=== PATIENT | male | born 1950 | race Caucasian/White ===

== ENCOUNTER 2018-03-07 21:51 | Emergency (ER) | payer MEDICARE ==
--- OUTSIDE RECORDS SUMMARY | 2018-03-07 22:09 | XMS REPORT ---
:1950 External Reference #:[id number] [facility] Address [address] [place] [address] Phone [phone] Care Team Providers Name Role Phone Richard Gasca MD Care Team Information Mission Support Specialist Unavailable Richard Gasca MD Primary Care Physician Unavailable Payers Type Date Identification Numbers Payment Provider Subscriber Commercial Effective: Policy Number: BS Facets Minh Russo 2011 [id number] Expires: 2018 PayID: [id number] [address] [address] [place] [address] Medigap Part B Policy Number: [id number] Medicare Minh Russo PayID: [id number] [address] [place] [address] Health Maintenance Policy Number: Medicare Blue Ppo Minh Russo [facility] [place] [place] [id number] PayID: [id number] [address] [address] [place] [address] Problems Date Description Provider Status Onset: 10/21/2010 Mixed hyperlipidemia Teresa Pierce M.D.,FACP Onset: 10/21/2010 Idiopathic peripheral neuropathy Teresa Pierce M.D.,FACP Onset: 09/23/2014 Multiple nodules of lung Teresa Pierce M.D.,MARILU Note: two Onset: 09/23/2014 Psoriasis Richard Gasca M.D.,FACP Active Family History Date Family Member(s) Problem(s) Comments Father Alzheimers Document: 12/06/07 - Prog Note - Belkis Father due to Cancer () - unknown primary Onset: (age 82 Mother Cancer, Colon Years) Mother due to Cancer, () Colon Mother Stroke Siblings 2 First Brother Nephrotic Syndrome Document: 12/06/07 - Prog Note - Belkis First Brother Diabetes, Insulin Dependent First Brother Aortic Aneurysm Second Brother Epilepsy Second Brother Frequent falls Social History Type Date Description Comments Marital Status Significant Other Lives With Alone Occupation Teacher ESL at [employer] Cigarette Use Former Cigarette Smoker Cigarette Use Quit 18 Years Ago ETOH Use 08/17/2017 Rarely consumes alcohol Recreational Drug Use Denies Drug Use Smoking Patient is a former smoker quit 1989 Currently Active Patient is currently not sexually active General Hx Text no children Allergies, Adverse Reactions, Alerts Date Description Reaction Status Severity Comments 12/05/2007 Penicillin active Hives/hallucinations 12/05/2007 Zocor active myalgias 12/05/2007 Lipitor active myalgias 06/16/2013 Bactrim Anaphylaxis active anaphylaxis 08/17/2017 Sulfa Antibiotics active Moderate to Severe Medications Medication Date Status Form Strength Qnty SIG Indications Ordering Provider Crestor 12/16/ Active Tablets 5mg 90tabs take one E78.2 Richard 2016 tablet by Vlad Gasca, mouth every M.D.,FACP evening Aspirin 10/19/ Active Tablets 325mg 1 po qd E78.2 Richard 2011 Vlad Gasca M.D.,FACP Clobetasol / Active Ointment 0.05% Unknown Propionate 0000 Claritin / Active Capsules 10mg 1 by mouth Unknown 0000 every day prn (seasonal) Azithromycin 06/03/ Hx Tablets 500mg 5tabs 1 po qd for J02.9 Richard 2015 - 5 days Vlad Gasca, 06/08/ MAspen,FACP 2015 Clindamycin HCL 08/18/ Hx Capsules 300mg 20caps take 1 po Richard 2013 - qid x 5 Vlad Gasca, 06/16/ days M.DBeba,FACP 2013 Clarithromycin 05/24/ Hx Tablets 500mg 28tabs 1 po bid 786.2 Richard 2010 - for 14 days Vlad Gasca, 06/14/ M.DBeba,FACP 2010 Aspirin 08/23/ Hx Tablets 325mg 1 po qd Richard 2009 Abiola aGsca, 10/19/ MAspen,FACP 2011 Tobramycin 05/02/ Hx Solution 0.3% 1Bottl 2 drops in 372.30 Richard Opthalmic 2008 - e affected Vlad Gasca, Solution 10/21/ eye q 4 M.D.,FACP 2010 hour Singulair 12/05/ Hx Tablets 10mg 30tabs 1 po qd 477.8 Richard 2008 - Vlad Gasca, 08/23/ M.D.,FACP 2009 Patanol 12/05/ Hx Solution 0.1% 1Bottl 1 drop in 372.30 Richard 2008 - e each eye Vlad Gasca, 08/23/ bid M.D.,FACP 2009 Asa / Hx 81mg 90unit 1 PO qd Unknown 0000 - s 2007 Protopic /00/ Hx qd Unknown 0000 - 2007 Dovonex / Hx Cream 0.005% Apply qd To Unknown 0000 - Scalp 2010 Cortaid / Hx Cream 0.5% apply daily Unknown 0000 - 2010 Singulair / Hx Tablets 10mg 90tabs 1 PO qd Unknown 0000 - 2009 Zyrtec Allergy / Hx Tablets 10mg Unknown 0000 - 2009 Patanol / Hx Solution 0.1% 1units 1 GTT Both Unknown 0000 - Eyes qd prn 10/21/ Allergies 2010 Niaspan / Hx TBCR 500mg 60unit Take 2 Richard 0000 - s Tablets Vlad Gasca, 10/19/ Orally AT M.D.,FACP 2011 Bedtime Cholestyramine / Hx Packet 4gm 60unit Dissolve E78.2 Richard 0000 - s One Packet Vlad Gasca, 12/16/ In Water M.D.,FACP 2015 And Drink Two Times A Day as Directed Immunizations CPT Code Status Date Vaccine Lot # [id number] Given 08/17/2017 Pneumococcal Conjugate Vaccine 13 Valent For [id number] Intramuscular Use 27972 Given 04/18/2017 Influenza Virus Vaccine, Quadrivalent, Split, Preservative Free [id number] Given 05/24/2016 Fluzone Vaccine 26144 Given 05/24/2016 Influenza Virus Vaccine, Quadrivalent, Split, Preservative Free 55733 Given 12/17/2015 Tdap - Tetanus/Diptheria/Acellular Pertussis [id number] 84796 Given 06/02/2015 Influenza Virus Vaccine, Quadrivalent, Split, Preservative Free 02893 Given 05/20/2014 Flu Vaccine Split Virus Preservative Free For Indiv 3Yr Older 02565 Given 05/05/2013 Flu Vaccine Split Virus Preservative Free For Indiv 3Yr Older [id number] Given 07/09/2012 Fluzone Vaccine 71641 Given 10/20/2011 Zoster (Zostavax) [id number] 23631 Given 05/24/2011 Influenza Virus 3Yrs & Over [id number] 45502 Given 08/23/2009 Influenza Virus Vaccine, Pandemic Formulation [id number] 41448 Given 08/23/2009 Administration Swine Flu Shot 49923 Given 06/05/2005 Tetanus And Diptheria (Td) For Adult Use Preservative Free Vital Signs Date Vital Result Comment 03/06/2018 Height 67 inches 5'7" Weight 152.00 lb Heart Rate 75 /min BP Systolic 140 mmHg BP Diastolic 88 mmHg O2 % BldC Oximetry 98 % BMI (Body Mass Index) 23.8 kg/m2 08/17/2017 Height 67 inches 5'7" Weight 155.00 lb Heart Rate 87 /min BP Systolic Sitting 130 mmHg BP Diastolic Sitting 80 mmHg Body Temperature 97.5 F O2 % BldC Oximetry 96 % BMI (Body Mass Index) 24.3 kg/m2 12/17/2015 Height 67.5 inches 5'7.50" Weight 150.00 lb Heart Rate 82 /min BP Systolic Sitting 140 mmHg BP Diastolic Sitting 82 mmHg Body Temperature 97.5 F O2 % BldC Oximetry 97 % BMI (Body Mass Index) 23.1 kg/m2 06/03/2015 Height 67.5 inches 5'7.50" Weight 145.25 lb Heart Rate 80 /min BP Systolic Sitting 122 mmHg BP Diastolic Sitting 78 mmHg Body Temperature 97.7 F O2 % BldC Oximetry 98 % BMI (Body Mass Index) 22.4 kg/m2 09/23/2014 Height 67.5 inches 5'7.50" Weight 145.00 lb Heart Rate 78 /min BP Systolic Sitting 140 mmHg BP Diastolic Sitting 80 mmHg Body Temperature 97.3 F O2 % BldC Oximetry 96 % BMI (Body Mass Index) 22.4 kg/m2 06/16/2014 Weight 147.50 lb Heart Rate 75 /min BP Systolic Sitting 136 mmHg BP Diastolic Sitting 82 mmHg Body Temperature 96.3 F O2 % BldC Oximetry 97 % 08/22/2013 Weight 151.00 lb Heart Rate 84 /min BP Systolic Sitting 126 mmHg BP Diastolic Sitting 78 mmHg 06/16/2013 Height 67.5 inches 5'7.50" Weight 147.00 lb Heart Rate 68 /min BP Systolic Sitting 130 mmHg BP Diastolic Sitting 80 mmHg BMI (Body Mass Index) 22.7 kg/m2 07/01/2012 Height 67.50 inches 5'7.50" Weight 148.00 lb Heart Rate 72 /min BP Systolic Sitting 142 mmHg BP Diastolic Sitting 92 mmHg Body Temperature 96.5 F BMI (Body Mass Index) 22.8 kg/m2 10/20/2011 Height 67.50 inches 5'7.50" Weight 151.00 lb Heart Rate 60 /min BP Systolic Sitting 130 mmHg BP Diastolic Sitting 70 mmHg BMI (Body Mass Index) 23.3 kg/m2 05/24/2011 Height 67.50 inches 5'7.50" Weight 148.00 lb Heart Rate 68 /min Body Temperature 98.7 F BMI (Body Mass Index) 22.8 kg/m2 10/21/2010 Weight 153.00 lb Heart Rate 80 /min BP Systolic Sitting 118 mmHg BP Diastolic Sitting 78 mmHg 08/23/2009 Height 68.5 inches 5'8.50" Weight 150.00 lb Heart Rate 74 /min BP Systolic Sitting 164 mmHg BP Diastolic Sitting 90 mmHg BMI (Body Mass Index) 22.5 kg/m2 06/12/2008 Height 68.5 inches 5'8.50" Weight 147.00 lb Heart Rate 80 /min BP Systolic Sitting 130 mmHg BP Diastolic Sitting 74 mmHg BMI (Body Mass Index) 22.0 kg/m2 12/06/2007 Weight 151.00 lb Heart Rate 80 /min BP Systolic Sitting 130 mmHg BP Diastolic Sitting 80 mmHg Results Test Date Test Result H/L Range Note Lipid Profile (Trig/Chol/HDL) 02/08/2017 Triglycerides 138 mg/dL 1 Cholesterol 170 mg/dL 2 HDL Cholesterol 37.3 mg/dL 3 LDL Cholesterol 105 mg/dL 4 Laboratory test finding 02/08/2017 Glucose 95 mg/dL 70-100 5 CBC Auto Diff 02/08/2017 White Blood Count 6.0 10^3/uL 3.5-10.8 Red Blood Count 4.41 10^6/uL 4.0-5.4 Hemoglobin 14.6 g/dL 14.0-18.0 Hematocrit 43 % 42-52 Mean Corpuscular Volume 97 fL High 80-94 Mean Corpuscular Hemoglobin 33 pg High 27-31 Mean Corpuscular HGB Conc 34 g/dL 31-36 Red Cell Distribution Width 13 % 10.5-15 Platelet Count 163 10^3/uL 150-450 Mean Platelet Volume 10 um3 7.4-10.4 Abs Neutrophils 3.4 10^3/uL 1.5-7.7 Abs Lymphocytes 1.9 10^3/uL 1.0-4.8 Abs Monocytes 0.5 10^3/uL 0-0.8 Abs Eosinophils 0.2 10^3/uL 0-0.6 Abs Basophils 0.1 10^3/uL 0-0.2 Abs Nucleated RBC 0 10^3/uL Granulocyte % 56.1 % 38-83 Lymphocyte % 31.6 % 25-47 Monocyte % 7.7 % 1-9 Eosinophil % 3.7 % 0-6 Basophil % 0.9 % 0-2 Nucleated Red Blood Cells % 0.1 CBC Auto Diff 12/20/2015 White Blood Count 6.8 10^3/uL 3.5-10.8 Red Blood Count 4.40 10^6/uL 4.0-5.4 Hemoglobin 14.4 g/dL 14.0-18.0 Hematocrit 41 % Low 42-52 Mean Corpuscular Volume 94 fL 80-94 Mean Corpuscular Hemoglobin 33 pg High 27-31 Mean Corpuscular HGB Conc 35 g/dL 31-36 Red Cell Distribution Width 13 % 10.5-15 Platelet Count 190 10^3/uL 150-450 Mean Platelet Volume 9 um3 7.4-10.4 Abs Neutrophils 4.1 10^3/uL 1.5-7.7 Abs Lymphocytes 1.9 10^3/uL 1.0-4.8 Abs Monocytes 0.5 10^3/uL 0-0.8 Abs Eosinophils 0.1 10^3/uL 0-0.6 Abs Basophils 0 10^3/uL 0-0.2 Abs Nucleated RBC 0 10^3/uL Granulocyte % 60.9 % 38-83 Lymphocyte % 28.2 % 25-47 Monocyte % 8.0 % 1-9 Eosinophil % 2.2 % 0-6 Basophil % 0.7 % 0-2 Nucleated Red Blood Cells % 0.1 Laboratory test finding 12/20/2015 Vitamin B12 641 pg/mL 180-914 6 Lipid Profile (Trig/Chol/HDL) 11/30/2015 Triglycerides 255 mg/dL 7 Cholesterol 230 mg/dL 8 HDL Cholesterol 43.7 mg/dL 9 LDL Cholesterol 135 mg/dL 10 Laboratory test 11/30/2015 Glucose 94 mg/dL 70-100 11 finding Laboratory test 09/21/2015 Surgical Pathology SEE RESULT BELOW 12 finding Lipid Profile 09/12/2014 Triglycerides 139 mg/dL 13, 14 (Trig/Chol/HDL) Cholesterol 243 mg/dL 13, 15 HDL Cholesterol 45.6 mg/dL 13, 16 LDL Cholesterol 170 mg/dL 13, 17 CBC Auto Diff 04/15/2014 White Blood Count 7.3 10^3/uL 4.8-10.8 Red Blood Count 4.21 10^6/uL 4.0-5.4 Hemoglobin 13.8 g/dL Low 14.0-18.0 Hematocrit 39 % Low 42-52 Mean Corpuscular Volume 94 fL 80-94 Mean Corpuscular Hemoglobin 33 pg High 27-31 Mean Corpuscular HGB Conc 35 g/dL 31-36 Red Cell Distribution Width 13 % 10.5-15 Platelet Count 170 10^3/uL 150-450 Mean Platelet Volume 8 um3 7.4-10.4 Abs Neutrophils 4.3 10^3/uL 1.5-7.7 Abs Lymphocytes 2.0 10^3/uL 1.0-4.8 Abs Monocytes 0.7 10^3/uL 0-0.8 Abs Eosinophils 0.3 10^3/uL 0-0.6 Abs Basophils 0.1 10^3/uL 0-0.2 Abs Nucleated RBC 0 10^3/uL Granulocyte % 58.8 % 38-83 Lymphocyte % 27.8 % 25-47 Monocyte % 9.0 % 1-9 Eosinophil % 3.5 % 0-6 Basophil % 0.9 % 0-2 Nucleated Red Blood Cells % 0 Comp Metabolic Panel 04/15/2014 Sodium 135 mmol/L 133-145 Potassium 3.6 mmol/L Low 3.7-5.6 Chloride 103 mmol/L 101-111 Co2 Carbon Dioxide 27 mmol/L 22-32 Anion Gap 5 mmol/L 2-11 Glucose 144 mg/dL High 70-100 Blood Urea Nitrogen 14 mg/dL 6-24 Creatinine 0.84 mg/dL 0.67-1.17 BUN/Creatinine Ratio 16.7 8-20 Calcium 9.2 mg/dL 8.6-10.3 Total Protein 6.9 g/dL 6.4-8.9 Albumin 3.9 g/dL 3.2-5.2 Globulin 3.0 g/dL 2-4 Albumin/Globulin Ratio 1.3 1-3 Total Bilirubin 0.40 mg/dL 0.2-1.0 Alkaline Phosphatase 75 U/L 34-104 Alt 13 U/L 7-52 Ast 17 U/L 13-39 Egfr Non- 92.3 >60 Egfr 118.7 >60 18 Laboratory test finding 04/15/2014 Magnesium 2.0 mg/dL 1.9-2.7 Creatine Kinase 75 U/L 10-223 CKMB 04/15/2014 CKMB ng/mL 2.3 ng/mL 0.6-6.3 Laboratory test finding 04/15/2014 Troponin I 0.00 ng/mL <0.03 19 D Dimer Quantitative < 200 ng/mL Less Than 230 20 Wound Culture/Sensi 08/16/2013 Wound/Misc Culture-Gram (SEE NOTE) 21 Stain Lipid Profile 06/06/2013 Triglycerides 184 mg/dL 40-200 (Trig/Chol/HDL) Cholesterol 262 mg/dL High Less than 200 HDL Cholesterol 38 mg/dL Low 40-60 22 Cholesterol/HDL Ratio 6.9 Average High 1-4.44 LDL Cholesterol 187.2 High Less Than 100 23 CBC Auto Diff 06/06/2013 White Blood Count 5.3 10^3/uL 4.8-10.8 Red Blood Count 4.61 10^6/uL 4.0-5.4 Hemoglobin 14.7 g/dL 14.0-18.0 Hematocrit 44 % 42-52 Mean Corpuscular Volume 96 fL High 80-94 Mean Corpuscular Hemoglobin 32 pg High 27-31 Mean Corpuscular HGB Conc 33 g/dL 31-36 Red Cell Distribution Width 13 % 10.5-15 Platelet Count 213 10^3/uL 150-450 Mean Platelet Volume 9 um3 7.4-10.4 Abs Neutrophils 2.7 10^3/uL 1.5-7.7 Abs Lymphocytes 1.9 10^3/uL 1.0-4.8 Abs Monocytes 0.4 10^3/uL 0-0.8 Abs Eosinophils 0.1 10^3/uL 0-0.6 Abs Basophils 0.1 10^3/uL 0-0.2 Abs Nucleated RBC 0.01 10^3/uL Granulocyte % 51.6 % 38-83 Lymphocyte % 36.4 % 25-47 Monocyte % 8.3 % 1-9 Eosinophil % 2.5 % 0-6 Basophil % 1.2 % 0-2 Nucleated Red Blood Cells % 0.1 Liver Function Panel 06/06/2013 Total Protein 7.2 g/dL 6.2-8.1 Albumin 3.8 g/dL 3.2-5.2 Globulin 3.4 g/dL 2-4 Albumin/Globulin Ratio 1.1 1-3 Total Bilirubin 1.1 mg/dL 0.4-1.5 Direct Bilirubin < 0.1 mg/dL Low 0.1-0.5 Indirect Bilirubin (SEE NOTE) mg/dL 0.3-1.0 24 Alkaline Phosphatase 73 U/L 30-110 Alt 20 U/L 14-54 Ast 25 U/L 12-42 Basic Metabolic Panel 06/06/2013 Sodium 136 mmol/L 133-145 Potassium 4.1 mmol/L 3.5-5.0 Chloride 100 mmol/L Low 101-111 Co2 Carbon Dioxide 30.0 mmol/L 22-32 Anion Gap 6.0 mmol/L 2-11 Glucose 100 mg/dL 70-100 Blood Urea Nitrogen 15 mg/dL 6-24 Creatinine 0.90 mg/dL 0.50-1.40 BUN/Creatinine Ratio 16.7 8-20 Calcium 9.0 mg/dL 8.1-9.9 Egfr Non- 85.5 >60 Egfr 110.0 >60 25 Lipid Profile (Trig/Chol/HDL) 10/07/2011 Triglyceride 207 mg/dL High 40- 200 Cholesterol 259 mg/dL High Less Than 200 26 High Density Lipoprotein 32 mg/dL Low 40-60 27 Cholesterol/HDL Ratio 8.09 AVERAGE High 1-4.97 Low Density Lipoprotein 186 mg/dL High Less Than 100 28 Basic Metabolic Panel 10/07/2011 Sodium 137 mmol/L 135-145 Potassium 4.0 mmol/L 3.5-5.0 Chloride 102 mmol/L 101-111 Co2 (Carbon Dioxide) 28.0 mmol/L 22-32 Anion Gap 7.0 mmol/L 2-11 29 Glucose 93 mg/dL 70-100 BUN 17 mg/dL 6-24 Creatinine 0.8 mg/dL 0.50-1.40 One Over Creatinine 1.25 BUN/Creatinine Ratio 21.3 High 8-20 Calcium 9.2 mg/dL 8.1-9.9 eGFR Non- 98.6 > 60 eGFR 126.8 > 60 30 Anti Gliadin Igg And Iga AB 06/10/2011 Gliadin Igg <10.0 U () 31 Gliadin Iga 15.8 U () 32 Laboratory test finding 06/10/2011 Lyme Disease Serology Negative Negative 33 Rheumatoid Factor < 15 IU/mL <15 34 Laboratory test finding 04/11/2011 Glucose 89 mg/dL 70-100 [place] (Antinuclear Antibodies) 04/11/2011 Antinuclear AB POSITIVE Negative [place] Pattern HOMOGENEOUS Antinuclear AB 1:320 Reviewed By (SEE NOTE) 35 Immunofixation (Electro) Serum 04/11/2011 Albumin 3.28 GM/DL 3.0-4.35 Alpha 1 0.16 GM/DL 0.09-0.33 Alpha 2 0.93 GM/DL 0.59-1.18 Beta 0.85 GM/DL 0.68-1.02 Gamma 1.48 GM/DL 0.76-1.60 Albumin % 49.0 % 46-63 Alpha 1 % 2.4 % 1.2-5.3 Alpha 2 % 13.9 % 9-17 Beta % 12.7 % 10-16 Gamma % 22.1 % High 12-22 A/G Ratio 1.0 0.9-2 Total Protein 6.7 GM/DL 6.2-8.1 Spep Comments (SEE NOTE) 36 Serum Immunofixation (SEE NOTE) 37 Comp Metabolic Panel 10/14/2010 Sodium 137 mmol/L 135-145 Potassium 4.3 mmol/L 3.5-5.0 Chloride 101 mmol/L 101-111 Co2 (Carbon Dioxide) 30.0 mmol/L 22-32 Anion Gap 6.0 mmol/L 2-11 38 Glucose 95 mg/dL 70-100 BUN 12 mg/dL 6-24 Creatinine 0.80 mg/dL 0.50-1.40 One Over Creatinine 1.20 BUN/Creatinine Ratio 15.0 8-20 Calcium 8.9 mg/dL 8.1-9.9 Total Protein 6.5 GM/DL 6.2-8.1 Albumin 4.0 GM/DL 3.6-5.4 Globulin 2.5 GM/DL 2-4 Albumin/Globulin Ratio 1.6 1-3 Bilirubin Total 1.0 mg/dL 0.4-1.5 39 Alkaline Phosphatase 80 U/L 39-117 Alt (SGPT) 20 U/L 17-63 Ast (Sgot) 26 U/L 12-42 eGFR Non- 98.9 > 60 eGFR 127.2 > 60 40 Lipid Profile (Trig/Chol/HDL) 10/14/2010 Triglyceride 126 mg/dL 40-200 Cholesterol 223 mg/dL High Less Than 200 41 High Density Lipoprotein 52 mg/dL 40-60 42 Low Density Lipoprotein 146 mg/dL High Less Than 100 43 Cholesterol/HDL Ratio 4.29 AVERAGE 1-4.97 Lipid Panel - [facility] 10/14/2010 CPK (Creatine Kinase) 128 U/L 0-200 Surgical Pathology 09/27/2010 Surgical Pathology 44 <SEE NOTE> Ssa/SSB 12/10/2009 Ssa NEGATIVE Negative SSB NEGATIVE Negative Laboratory test finding 12/10/2009 SM(Perla) Igg Autoantibodies 0.2 U () 45 Anti Ssa/Ro <0.2 U () 46 Evelin: STANDARD MACHINE STITCHER & SM Antibodies 12/10/2009 STANDARD MACHINE STITCHER Antibody NEGATIVE Negative SM Antibody NEGATIVE Negative Laboratory test finding 12/10/2009 Anti Dna (Double Stranded NEGATIVE Negative Dna) Vitamin E 11/23/2009 Vitamin E 25.7 mg/L 5.5-17.0 47 [place] 11/23/2009 Antinuclear AB POSITIVE Negative [place] Pattern HOMOGENEOUS Antinuclear AB 1:160 Reviewed By (SEE NOTE) 48 Comp Metabolic Panel 08/27/2009 Sodium 137 mmol/L 135-145 Potassium 4.0 mmol/L 3.5-5.0 Chloride 99 mmol/L Low 101-111 Co2 (Carbon Dioxide) 31.0 mmol/L 22-32 Anion Gap 7.0 mmol/L 2-11 49 Glucose 99 mg/dL 70-100 50 BUN 13 mg/dL 6-24 Creatinine 0.80 mg/dL 0.50-1.40 One Over Creatinine 1.20 BUN/Creatinine Ratio 16.3 8-20 Calcium 9.2 mg/dL 8.1-9.9 51 Total Protein 7.0 GM/DL 6.2-8.1 Albumin 4.0 GM/DL 3.6-5.4 Globulin 3.0 GM/DL 2-4 Albumin/Globulin Ratio 1.3 1-3 Bilirubin Total 0.8 mg/dL 0.4-1.5 52 Alkaline Phosphatase 91 U/L 39-117 Alt (SGPT) 17 U/L 17-63 Ast (Sgot) 21 U/L 12-42 eGFR Non- 105.5 > 60 eGFR 127.7 > 60 53 Lipid Profile (Trig/Chol/HDL) 08/27/2009 Triglyceride 183 mg/dL 40-200 Cholesterol 236 mg/dL High Less Than 200 54 High Density Lipoprotein 43 mg/dL 40-60 55 Cholesterol/HDL Ratio 5.49 AVERAGE High 1-4.97 Low Density Lipoprotein 156 mg/dL High Less Than 100 56 Vitamin B12 And Folate Serum 08/27/2009 Vitamin B12 672 pg/mL 180-914 Folic Acid 17.6 NG/ML High 2-16 Protein Electrophoresis Serum 08/27/2009 Albumin 3.84 GM/DL 3.2-5.3 Alpha 1 0.23 GM/DL 0.1-0.4 Alpha 2 0.84 GM/DL 0.4-1.0 Beta 1.07 GM/DL 0.5-1.1 Gamma 1.43 GM/DL 0.70-1.7 Albumin % 51.9 % Low 52-65 Alpha 1 % 3.1 % 2.5-5 Alpha 2 % 11.4 % 7-13 Beta % 14.5 % High 8-14 Gamma % 19.3 % 12-22 A/G Ratio 1.1 0.9-2 Total Protein 7.4 GM/DL 6.2-8.1 Spep Comments (SEE NOTE) 57 Laboratory test finding 08/27/2009 TSH 1.73 MIU/ML 0.34-5.60 Homocysteine 8 umol/L () 58 Vitamin D, 25 Hydroxy 08/27/2009 25-Hydroxy Vitamin D2 <4.0 ng/mL () 25-Hydroxy Vitamin D3 26 ng/mL () 25-Hydroxy Vitamin D Total 26 ng/mL () 59 Lipid Panel - [facility] 08/27/2009 CPK (Creatine Kinase) 70 U/L 0-200 Lipid Profile 11/21/2007 Cholesterol/HDL Ratio 5.76 AVERAGE High 1-4.97 60 (Trig/Chol/HDL) Cholesterol 236 mg/dL High Less Than 200 60, 61 Triglyceride 210 mg/dL High 40-200 60 High Density Lipoprotein 41 mg/dL 40-60 60, 62 Low Density Lipoprotein 153 mg/dL High Less Than 100 60, 63 Liver Function Panel 11/21/2007 Albumin/Globulin Ratio 1.2 1-3 60 Albumin 3.8 GM/DL 3.6-5.4 60 Alkaline Phosphatase 81 U/L 39-117 60 Alt (SGPT) 17 U/L 17-63 60 Ast (Sgot) 23 U/L 12-42 60 Bilirubin Direct < 0.1 mg/dL Low 0.1-0.5 60 Globulin 3.3 GM/DL 2-4 60 Bilirubin Total 0.9 mg/dL 0.4-1.5 60 Total Protein 7.1 GM/DL 6.2-8.1 60 Laboratory test finding 11/21/2007 CPK (Creatine Kinase) 112 U/L 0-200 60 Surgical Pathology 09/24/2007 Surgical Pathology 64 <SEE NOTE> 1 Desirable <150 Borderline high 150-199 High 200-499 Very High >500 2 Desirable <200 Borderline high 200-239 High >239 3 Low <40 Desirable: 40-60 High: >60 4 Desirable: <100 mg/dL Near Optimal: 100-129 mg/dL Borderline High: 130-159 mg/dL High: 160-189 mg/dL Very High: >189 mg/dL 5 FASTING 10 HOUR 6 Normal Range 180 to 914 Indeterminate Range 145 to 180 Deficient Range <145 7 Desirable <150 Borderline high 150-199 High 200-499 Very High >500 8 Desirable <200 Borderline high 200-239 High >239 9 Low <40 Desirable: 40-60 High: >60 10 Desirable: <100 mg/dL Near Optimal: 100-129 mg/dL Borderline High: 130-159 mg/dL High: 160-189 mg/dL Very High: >189 mg/dL 11 FASTING 10 HOUR 12 SEE RESULT BELOW Name: MINH RUSSO : [address]: Adelfo Jeffrey MD Acct: [id number] Unit: [id number] AGE: 65 Location: [facility] Re09/21/15 SEX: M Status: REG REF SPEC: [id number] ADRIANA: 09/21/15- [facility] DR: Adelfo Jeffrey MD REQ: [id number] RECD: 09/21/15 STATUS: WESLY MADISON DR: Richard Gasca MD _ ORDERED: LEVEL IV FINAL DIAGNOSIS Colon, 20 cm, biopsy: -- Hyperplastic polyps. CLINICAL HISTORY No history given POST-OPERATIVE DIAGNOSIS Colonoscopy to cecum - difficult sigmoid/hepatic; polyps at 20 cm. x2; echols- tics; 5 years GROSS DESCRIPTION The specimen is received in formalin labeled, Biopsy Colon Polyps at 20 cm, and consists of two avila irregular soft tissue fragments averaging 0.3 x 0.2 x 0.1 cm, which are submitted entirely in one cassette. Signed (signature on file) Cam English MD 1046 END OF REPORT * ML=Testing performed at Main Lab DEPARTMENT OF PATHOLOGY, [address] [place], [place] [address] Cam English M.D. Director [facility] # [id number] 13 FASTING 14 Desirable <150 Borderline high 150-199 High 200-499 Very High >500 15 Desirable <200 Borderline high 200-239 High >239 16 Low <40 Desirable: 40-60 High: >60 17 Desirable <100 Near Optimal 100-129 Borderline high 130-159 High 160-189 Very High >189 18 Because ethnic data is not always readily available, this report includes an eGFR for both -Americans and non- Americans. The National Kidney Disease Education Program (NKDEP) does not endorse the use of the MDRD equation for patients that are not between the ages of 18 and 70, are , have extremes of body size, muscle mass, or nutritional status, or are non- or non-. According to the National Kidney Foundation, irrespective of diagnosis, the stage of the disease is based on the level of kidney function: Stage Description GFR(mL/min/1.73 m(2)) 1 Kidney damage with normal or decreased GFR 90 2 Kidney damage with mild decrease in GFR 60-89 3 Moderate decrease in GFR 30-59 4 Severe decrease in GFR 15-29 5 Kidney failure <15 (or dialysis) 19 Reference Range and Interpretation: TnI (ng/mL) Interpretation Less Than 0.03 ng/mL Not supportive of diagnosis of MT 0.03 - 0.50 ng/mL Indeterminate: suggest serial studies if clinically indicated. Greater than 0.5 ng/mL Consistent with diagnosis of MT 20 Please note: The following may produce a false positive D Dimer test: - Rheumatoid factor greater than 60 IU/ml - Plasma hemoglobin greater than 0.05 gm/dl - Bilirubin greater than 50 mg/dl - Lipids greater than 1000 mg/dl - FDP greater than 20 ug/ml 21 RUN DATE: 08/18/13 [facility] LAB LIVE PAGE 1 RUN TIME: 113[address] [place], [place] [address] Specimen Inquiry Name: MINH RUSSO : [address]: Ketan Helton MD Acct: [id number] Unit: [id number] AGE: 63 Location: [facility] Re08/16/13 SEX: M Status: DEP ER SPEC: [id number] ADRIANA: 08/16/[address] [facility] [address]: Ketan Helton MD REQ: [id number] RECD: 08/16/13 STATUS: ARIC MADISON DR: Richard Gasca MD _ SOURCE: LEG,LEFT SPDESC: ORDERED: Culture Stain Procedure Result Verified Site Wound/Misc Gram Stain Final 08/16/13- 1341 ML 3+ Epithelial Cells 3+ Polys 2+ Gram Positive Cocci Wound/Misc Culture Final 08/18/13- 1139 ML Organism 1 STAPHYLOCOCCUS AUREUS Quantity 3+ 1. STAPHYLOCOCCUS AUREUS M.I.C. RX --------- ------ Penicillin R Clindamycin <=0.25 S Erythromycin <=0.25 S Gentamicin <=0.5 S Linezolid 1 S Nitrofurantoin <=16 S Oxacillin <=0.25 S * Quinupristin/Dalfopristin <=0.25 S Rifampin <=0.5 S Tetracycline <=1 S Doxycycline - Deduced S * Minocycline - Deduced S Trimethoprim/Sulfamethoxazole <=10 S Vancomycin 1 S Imipenem-Deduced S * Ampicillin/Sulbactam-Deduced S Cefazolin-Deduced S CONTINUED ON NEXT PAGE * ML=Testing performed at Main Lab DEPARTMENT OF PATHOLOGY, [facility] [place] [address] Cam English M.D. Director [facility] Permit #[id number] RUN DATE: 08/18/13 [facility] LAB LIVE PAGE 2 RUN TIME: [address] [place] [id number] Specimen Inquiry Patient: MINH RUSSO [id number] (Continued) Specimen: [id number] Collected: 08/16/13 Received: 08/16/13 (Continued) Procedure Result Verified Site Wound/Misc Culture Final (continued) * These antibiotics are not available in the [facility] Formulary Contact the Microbiology Department for any additional antibiotic reporting. END OF REPORT * ML=Testing performed at Main Lab DEPARTMENT OF PATHOLOGY, [address] [place] [address] Cam English M.D. Director [facility] Permit #[id number] HDL Interpretation: Undesirable: High Risk: Less than 40 mg/dL Desirable: Low Risk: Greater than 60 mg/dL 23 LDL Interpretation: Low Risk Optimal Level: LDL Less than 100 mg/dL Near or Above Optimal: LDL 100-129 mg/dL Borderline High Risk: LDL 130-159 mg/dL High Risk: LDL 160-189 mg/dL Very High Risk: LDL Greater than 189 mg/dL 24 Unable to calculate Ind Bili as D Bili is <0.1 25 Because ethnic data is not always readily available, this report includes an eGFR for both -Americans and non- Americans. The National Kidney Disease Education Program (NKDEP) does not endorse the use of the MDRD equation for patients that are not between the ages of 18 and 70, are , have extremes of body size, muscle mass, or nutritional status, or are non- or non-. According to the National Kidney Foundation, irrespective of diagnosis, the stage of the disease is based on the level of kidney function: Stage Description GFR(mL/min/1.73 m(2)) 1 Kidney damage with normal or decreased GFR 90 2 Kidney damage with mild decrease in GFR 60-89 3 Moderate decrease in GFR 30-59 4 Severe decrease in GFR 15-29 5 Kidney failure <15 (or dialysis) 26 CHOLESTEROL INTERPRETATION: Desirable: Less than 200 MG/DL Borderline-High Risk: 200-239 MG/DL High-Risk: 240 MG/DL and over 27 HDL INTERPRETATION: Undesirable: High Risk: Less than 40 MG/DL Desirable: Low Risk: Greater than 60 MG/DL 28 LDL INTERPRETATION: Low Risk Optimal Level: LDL Less than 100 MG/DL Near or Above Optimal: LDL 100-129 MG/DL Borderline High Risk: LDL 130-159 MG/DL High Risk: LDL 160-189 MG/DL Very High Risk: LDL Greater than 189 MG/DL 29 Anion gap measurement may be of limited value in the presence of any alkalosis, especially in a combined acid base disorder. . 30 Because ethnic data is not always readily available, this report includes an eGFR for both -Americans and non- Americans. The National Kidney Disease Education Program (NKDEP) does not endorse the use of the MDRD equation for patients that are not between the ages of 18 and 70, are , have extremes of body size, muscle mass, or nutritional status, or are non- or non-. According to the National Kidney Foundation, irrespective of diagnosis, the stage of the disease is based on the level of kidney function: Stage Description GFR(mL/min/1.73 m(2)) 1 Kidney damage with normal or decreased GFR 90 2 Kidney damage with mild decrease in GFR 60-89 3 Moderate decrease in GFR 30-59 4 Severe decrease in GFR 15-29 5 Kidney failure <15 (or dialysis) 31 -- REFERENCE VALUE -- <20.0 (Negative) Test Performed by: [facility] Dpt of Lab Med and Pathology [address] [place] [address] Pamphlet Distributor: Renaldo Merrill III, M.D. 32 -- REFERENCE VALUE -- <20.0 (Negative) Test Performed by: [facility] Dpt of Lab Med and Pathology [address] [place] [address] Pamphlet Distributor: Renaldo Merrill III, M.D. 33 Serologic response to B. burgdorferi infection is not detected, but cannot rule out early infection during which low or undetectable antibody levels to B. burgdorferi may be present. If clinically indicated, a new serum specimen should be submitted in 7-14 days. Test Performed by: [facility] Dpt of Lab Med and Pathology [address] [place] [address] Pamphlet Distributor: Renaldo Merrill III, M.D. 34 Test Performed by: [facility] Dpt of Lab Med and Pathology [address] [place] [address] Pamphlet Distributor: Renaldo Merrill III, M.D. 35 REVIEWED BY MAYA LINDSEY MD 36 NORMAL ELECTROPHORETIC PATTERN. 37 NORMAL SERUM IMMUNOFIXATION ELECTROPHORETIC PATTERN. NO MONOCLONAL PROTEIN DETECTED. 38 Anion gap measurement may be of limited value in the presence of any alkalosis, especially in a combined acid base disorder. . 39 A metabolite of Naproxen, O-desmethylnaproxen, has been shown to interfere with the Jendrassik-Catrachito method for measuring total bilirubin. Samples from patients who have taken Naproxen have shown spurious elevation in total bilirubin levels. 40 Because ethnic data is not always readily available, this report includes an eGFR for both -Americans and non- Americans. The National Kidney Disease Education Program (NKDEP) does not endorse the use of the MDRD equation for patients that are not between the ages of 18 and 70, are , have extremes of body size, muscle mass, or nutritional status, or are non- or non-. According to the National Kidney Foundation, irrespective of diagnosis, the stage of the disease is based on the level of kidney function: Stage Description GFR(mL/min/1.73 m(2)) 1 Kidney damage with normal or decreased GFR 90 2 Kidney damage with mild decrease in GFR 60-89 3 Moderate decrease in GFR 30-59 4 Severe decrease in GFR 15-29 5 Kidney failure <15 (or dialysis) 41 CHOLESTEROL INTERPRETATION: Desirable: Less than 200 MG/DL Borderline-High Risk: 200-239 MG/DL High-Risk: 240 MG/DL and over 42 HDL INTERPRETATION: Undesirable: High Risk: Less than 40 MG/DL Desirable: Low Risk: Greater than 60 MG/DL 43 LDL INTERPRETATION: Low Risk Optimal Level: LDL Less than 100 MG/DL Near or Above Optimal: LDL 100-129 MG/DL Borderline High Risk: LDL 130-159 MG/DL High Risk: LDL 160-189 MG/DL Very High Risk: LDL Greater than 189 MG/DL 44 ---- RUN DATE: 09/29/10 [facility] NMI LIVE PAGE 1 RUN TIME: 1505 Specimen Inquiry RUN USER: INTERFACE -- Name: MINH RUSSO#: [id number] Status: REG REF Re09/27/10 Age/Sex: 60/M Unit#: [id number] Location: [facility] : 51 -- Specimen: [id number] WESLY Spec Date: 09/27/[address]: Adelfo holder MD Spec Type: SURGICAL P Received: 09/28/10-4532 Copies to: Richard casey MD SPECIMEN 1) BIOPSY COLON POLYP AT 40 CM. 2) BIOPSY RECTAL POLYP HISTORY POST-OP DIAGNOSIS: Colonoscopy to cecum. Two polyps. CLINICAL INFORMATION: History of colon polyps. Screening. GROSS DESCRIPTION 1) The specimen is received in formalin labelled Minh Russo, Colon Polyp at 40 cm., and consists of a avila soft tissue fragment measuring 0.3 x 0.3 x 0.2 cm. Submitted entirely, one cassette. 2) The specimen is received in formalin labelled Minh E. Shakeel, Biopsy Rectal Polyp, and consists of two avila soft tissue fragments measuring 0.4 x 0.3 x 0.2 cm. Submitted entirely, one cassette. DIAGNOSIS 1) Colon, at 40 cm., biopsy: Hyperplastic polyp. 2) Colon, rectum, biopsy: A. Tubular adenoma. B. No high grade dysplasia or malignancy. Signed Electronically by: CAM ENGLISH MD 09/29/10 1505 -- -- DEPARTMENT OF PATHOLOGY, [address] [place] [id number] [facility] Permit #[id number] Cam English M.D. Director Maya Lindsey M.D. Printing Mechanist malaika -- 45 -- REFERENCE VALUE -- <1.0 (Negative) > or=1.0 (Positive) Test Performed by: [facility] Dpt of Lab Med and Pathology [address] [place] [address] Pamphlet Distributor: Renaldo Merrill III, M.D. 46 -- REFERENCE VALUE -- <1.0 (Negative) > or=1.0 (Positive) Test Performed by: [facility] Dpt of Lab Med and Pathology [address] [place] [address] Pamphlet Distributor: Renaldo Merrill III, M.D. 47 Test Performed by: [facility] Dpt of Lab Med and Pathology [address] [place] [address] Pamphlet Distributor: Renaldo Merrill III, M.D. 48 REVIEWED BY MAYA LINDSEY MD 49 Anion gap measurement may be of limited value in the presence of any alkalosis, especially in a combined acid base disorder. . 50 Note change in reference range as of 03/26/08. The change was based on recommendations from the [place] [employer]. 51 Please note change in reference range effective 08 . 52 A metabolite of Naproxen, O-desmethylnaproxen, has been shown to interfere with the Jendrassik-Catrachito method for measuring total bilirubin. Samples from patients who have taken Naproxen have shown spurious elevation in total bilirubin levels. 53 Because ethnic data is not always readily available, this report includes an eGFR for both -Americans and non- Americans. The National Kidney Disease Education Program (NKDEP) does not endorse the use of the MDRD equation for patients that are not between the ages of 18 and 70, are , have extremes of body size, muscle mass, or nutritional status, or are non- or non-. According to the National Kidney Foundation, irrespective of diagnosis, the stage of the disease is based on the level of kidney function: Stage Description GFR(mL/min/1.73 m(2)) 1 Kidney damage with normal or decreased GFR 90 2 Kidney damage with mild decrease in GFR 60-89 3 Moderate decrease in GFR 30-59 4 Severe decrease in GFR 15-29 5 Kidney failure <15 (or dialysis) 54 CHOLESTEROL INTERPRETATION: Desirable: Less than 200 MG/DL Borderline-High Risk: 200-239 MG/DL High-Risk: 240 MG/DL and over 55 HDL INTERPRETATION: Undesirable: High Risk: Less than 40 MG/DL Desirable: Low Risk: Greater than 60 MG/DL 56 LDL INTERPRETATION: Low Risk Optimal Level: LDL Less than 100 MG/DL Near or Above Optimal: LDL 100-129 MG/DL Borderline High Risk: LDL 130-159 MG/DL High Risk: LDL 160-189 MG/DL Very High Risk: LDL Greater than 189 MG/DL 57 INCREASED BETA GLOBULIN- CONSISTENT WITH HYPERLIPO- PROTEINEMIA OR IRON DEFICIENCY. 58 -- REFERENCE VALUE -- <=13 (Fasting) Test Performed by: [facility] Dpt of Lab Med and Pathology [address] [place] [address] Pamphlet Distributor: Renaldo Merrill III, M.D. 59 -- REFERENCE VALUE -- 25-HYDROXY D TOTAL (D2+D3) Optimum levels in the normal population are 25-80 Test Performed by: [facility] Dpt of Lab Med and Pathology [address] [place] [address] Pamphlet Distributor: Renaldo Merrill III, M.D. 60 FASTING PATIENT MAY HAVE RESULTS PER DOCTOR'S AUTHORIZATION. Questions regarding this report should be directed to your doctor. 61 CHOLESTEROL INTERPRETATION: Desirable: Less than 200 MG/DL Borderline-High Risk: 200-239 MG/DL High-Risk: 240 MG/DL and over 62 HDL INTERPRETATION: Undesirable: High Risk: Less than 40 MG/DL Desirable: Low Risk: Greater than 60 MG/DL 63 LDL INTERPRETATION: Low Risk Optimal Level: LDL Less than 100 MG/DL Near or Above Optimal: LDL 100-129 MG/DL Borderline High Risk: LDL 130-159 MG/DL High Risk: LDL 160-189 MG/DL Very High Risk: LDL Greater than 189 MG/DL 64 ---- RUN DATE: 09/26/07 [facility] NMI LIVE PAGE 1 RUN TIME: 1604 Specimen Inquiry RUN USER: INTERFACE [id number] MINH RUSSO/Ileana <REG REF 09/24> ([id number]) [id number] Jeffrey MD, Adelfo Yoder -- Specimen: [id number] SOUT Spec Date: 09/24/[address]: Adelfo holder MD Spec Type: SURGICAL P Received: 09/25/07-4994 Copies to: Richard casey MD SPECIMEN 1) BIOPSY COLON POLYP AT 50 CM. 2) BIOPSY COLON POLYP AT 35 CM. 3) BIOPSY COLON POLYP AT 15 CM. HISTORY CLINICAL INFORMATION: Family history of colon carcinoma GROSS DESCRIPTION 1) The specimen is received in formalin labelled Minh Russo, Biopsy Polyp at 50 cm., and consists of a avila, soft tissue fragment measuring 0.4 x 0.2 x 0.1 cm. Submitted entirely, one cassette. 2) The specimen is received in formalin labelled Minh Russo, Biopsy Colon Polyp at 35 cm., and consists of two, avila, soft tissue fragments measuring 0.3 x 0.2 x 0.1 cm. Submitted entirely, one cassette. 3) The specimen is received in formalin labelled Minh Russo, Biopsy Colon Polyp at 15 cm., and consists of multiple, avila, soft tissue fragments measuring 0.5 x 0.2 x 0.1 cm. Submitted entirely, one cassette. DIAGNOSIS 1) Colon, polyp at 50 cm., biopsy - A) Tubular adenoma. B) No high grade dysplasia or malignancy. 2) Colon, 35 cm., biopsy - Inflamed hyperplastic polyp. 3) Colon, 15 cm., biopsy - Inflamed hyperplastic polyp. Signed Electronically by: CAM ENGLISH MD 09/26/07 1604 -- -- DEPARTMENT OF PATHOLOGY, [address] [place] [address] [facility] Permit #[id number] Cam English M.D. Director of [employer] -- Procedures Date CPT Code Description Status 09/29/2015 Colonoscopy Completed 04/25/2013 52832 Treadmill Interp/Report Only Completed 04/25/2013 12855 Stress Test Supervsn W/Out I/R Completed 04/25/2013 12159 EKG, Interpretation Only Completed 09/27/2010 Colonoscopy Completed Encounters Type Date Location Provider CPT E/M Dx Office Visit 08/17/2017 1:00p [facility] Internal Richard Gasca, 62942 Z00.00 Medicine - [place] Patrick Srinivasan,FACP E78.2 Z23 Office Visit 12/17/2015 2:00p [facility] Internal Richard Gasca, 97061 Z00.01 Medicine - [place] Patrick Srinivasan,FACP G60.8 E78.2 R91.1 R19.4 Z23 Office Visit 06/03/2015 4:20p [facility] Internal Medicine Richard Gasca, 07234 J02.9 - [place] Patrick Srinivasan,FACP Office Visit 09/23/2014 9:10a [facility] Internal Medicine Richard Gasca, 94290 V70.0 - Tbkelly Nguyen M.D.,FACP 272.2 787.99 793.11 Office Visit 06/16/2014 9:10a [facility] Internal Medicine Richard Gasca, 26208 518.89 - Mahesh Srinivasan,FACP 706.2 787.99 Office Visit 08/22/2013 1:20p [facility] Internal Medicine Richard Gasca, 72242 706.2 - Mahesh Srinivasan,FACP Office Visit 06/16/2013 10:50a [facility] Internal Medicine Richard Gasca, 00210 V70.0 - Mahesh Srinivasan,FACP 272.2 909.5 238.2 Office Visit 04/26/2013 10:41a [facility], Suzanne Marino, N.P. 50309 995.0 Hospitalists 786.59 Office Visit 04/25/2013 10:41a [facility], Suzanne Marino, N.P. 89719 995.0 Hospitalists 786.59 Office Visit 04/24/2013 10:38a [facility], Rosana Thapa, 71428 995.0 Hospitalists MAspen 786.59 Office Visit 07/01/2012 11:40a [facility] Internal Medicine Iker Ramirez, 19426 461.9 - Mahesh Srinivasan Office Visit 10/20/2011 2:00p [facility], 00540 V70.0 - Mahesh Srinivasan,FACP 272.2 356.8 V04.89 Office Visit 05/24/2011 4:40p DO Not Use [facility], [address]60 786.2 [facility].Lalo.,FACP 238.2 V04.81 Office Visit 10/21/2010 2:00p DO Not Use [facility], 53148 V70.0 [place] M.D.,FACP 272.2 696.1 356.8 Office Visit 08/23/2009 11:00a DO Not Use [facility], 56462 V70.0 [facility].D.,FACP 272.2 441.4 356.8 V04.81 Office Visit 06/12/2008 3:20p DO Not Use [facility], 47484 840.4 [place] M.Vlad,FACP 599.0 Office Visit 12/06/2007 1:30p DO Not Use [place] [place] [address] 372.30 [place] 477.8 Plan of Care 03/06/2018 - Marni Ricthie, RPA-CR10.32 Left lower quadrant painComments:For acute diverticular symptoms, avoid fiber and nuts/seeds. The attached handout will recommend fiber which you should follow when you are not currently having symptoms.Please call if develop fever, vomiting, significant blood in or on stool. Avoid NSAIDs (ibuprofen, aleve, naproxen, etc.)
[2018-03-07] MEDS ORDERED: Ondansetron INJ* 2 MG/ML VIAL IV ONE (23:03)
[2018-03-07] MEDS ORDERED: Morphine INJ* 2 MG/ML 1 ML CARPUJECT IV ONE (23:03)
[2018-03-07] MEDS ORDERED: NS 0.9% 1000 ML* 1,000 ML IV ONE (23:04)
[2018-03-07 23:35] LABS: ABS Basophils 0.1 10^3/ul (0-0.2); ABS Eosinophils 0.1 10^3/ul (0-0.6); ABS Lymphocytes 1.2 10^3/ul (1.0-4.8); ABS Monocytes 0.6 10^3/ul (0-0.8); ABS Neutrophils 12.3 10^3/ul (1.5-7.7); ABS Nucleated RBC 0 10^3/ul; Eosinophil % 0.4 % (0-6); Hematocrit 43 % (42-52); Hemoglobin 14.6 g/dl (14.0-18.0); Lymphocyte % 8.5 % (25-47); Mean Corpuscular HGB Conc 34 g/dl (31-36); Mean Corpuscular Hemoglobin 32 pg (27-31); Mean Corpuscular Volume 95 fL (80-94); Mean Platelet Volume 8.6 um3 (7.4-10.4); Nucleated Red Blood Cells % 0; Platelet Count 173 10^3/ul (150-450); Red Blood Count 4.51 10^6/ul (4.00-5.40); Red Cell Distribution Width 13 % (10.5-15); White Blood Count 14.3 10^3/ul (3.5-10.8)
[2018-03-07] MEDS ORDERED: Morphine INJ* 2 MG/ML 1 ML SYRINGE (TWO MG - NEW SYRINGE VERSION) ONE (23:36)
[2018-03-07 23:43] LABS: INR 1.08 (0.77-1.02)
[2018-03-07 23:50] LABS: Urine Appearance Clear; Urine Blood 2+ (Negative); Urine Color Yellow; Urine Ketones Negative (Negative); Urine Protein Negative (Negative); Urine Red Blood Cell 3+(>10/hpf) (Absent); Urine Specific Gravity 1.017 (1.010-1.030); Urine Urobilinogen Negative (Negative); Urine White Blood Cell Trace(0-5/hpf) (Absent)
--- NOTE | 2018-03-08 | ED ---
Abdominal Pain/Male - HPI Summary HPI Summary: Patient presents with 3 days of generalized abdominal discomfort. He reports this was accompanied by multiple bowel movements that had an appearance of " beet colored stool" however he had not eaten anything with colors like this. He reported this to his PCP who decided to do a 3 card stool smear to assess for occult blood. He has not returned these to the PCP yet as he was completing his last one today. He does admit to a history of diverticulosis without diverticulitis. He's also had polyps on colonoscopy in the past that have been benign. No known h/o ulcer or GI bleed. Additionally, he is here tonight as he reports his generalized abdominal pain has settled over into his left side and flank. Pain is intermittent and has triggered him to have sweats with nausea and vomiting. He also has some urge to urinate with hesitation however he has been able to urinate. He denies gross hematuria, dysuria, penile pain, testicular pain or swelling. No known history of UTI or kidney stone. - History of Current Complaint Chief Complaint: EDFlankPain Stated Complaint: BACK/FLANK PAIN Time Seen by Provider: 03/07/18 22:51 Hx Obtained From: Patient Pain Intensity: 9 - Allergies/Home Medications Allergies/Adverse Reactions: Allergies Allergy/AdvReac Type Severity Reaction Status Date / Time MS Penicillins [Penicillins] Allergy Hives Verified 04/15/14 19:28 MS Sulfamethoxazole Allergy Hives Verified 04/15/14 19:28 w/Trimethoprim [From Bactrim] Home Medications: Home Medications Crestor 20 mg PO DAILY WITH MEAL 03/08/18 [History Confirmed 03/08/18] PMH/Surg Hx/FS Hx/Imm Hx Previously Healthy: Yes Endocrine/Hematology History: Denies: Hx Anticoagulant Therapy, Hx Blood Disorders, Hx Diabetes, Hx Thyroid Disease, Autoimmune Disease Cardiovascular History: Reports: Hx Hypercholesterolemia - takes crestor Denies: Hx Angina, Hx Congestive Heart Failure, Hx Coronary Artery Disease, Hx Hypertension, Hx Myocardial Infarction, Hx Valvular Heart Disease Respiratory History: Denies: Hx Asthma, Hx Chronic Obstructive Pulmonary Disease (COPD) GI History: Reports: Hx Diverticulosis Denies: Hx Cirrhosis, Hx Crohn's Disease, Hx Gall Bladder Disease, Hx Gastroesophageal Reflux Disease, Hx Gastrointestinal Bleed, Hx Hiatal Hernia, Hx Irritable Bowel, Hx Obstructive Bowel, Hx Ulcer History: Denies: Hx Kidney Infection, Hx Kidney Stones, Hx Renal Disease Sensory History: Reports: Hx Contacts or Glasses Opthamlomology History: Reports: Hx Contacts or Glasses EENT History: Reports: Other - 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 - Surgical History Surgery Procedure, Year, and Place: INFANT CLEFT PALATE REPAIR Infectious Disease History: No Infectious Disease History: Denies: Hx Clostridium Difficile, Hx Hepatitis, Hx Human Immunodeficiency Virus (HIV), Hx of Known/Suspected MRSA, Hx Shingles, Hx Tuberculosis, Traveled Outside the [place] in Last 30 Days - Social History Occupation: Retired Lives: Dormitory/Roommates - housemate upstairs Alcohol Use: None Hx Substance Use: No Substance Use Type: Reports: None Hx Tobacco Use: No Smoking Status (MU): Never Smoked Tobacco Review of Systems Constitutional: Other - sweats Negative: Fatigue Negative: Sore Throat Cardiovascular: Negative Negative: Chest Pain Respiratory: Negative Negative: Shortness Of Breath Positive: Abdominal Pain, Vomiting, Nausea. Negative: Diarrhea Positive: see HPI Musculoskeletal: Negative Skin: Negative Neurological: Negative Psychological: Normal All Other Systems Reviewed And Are Negative: Yes Physical Exam Triage Information Reviewed: Yes Vital Signs On Initial Exam: Initial Vitals Temp Pulse Resp BP Pulse Ox 97.1 F 75 20 178/92 96 03/07/18 21:56 03/07/18 21:56 03/07/18 21:56 03/07/18 21:56 03/07/18 21:56 Vital Signs Reviewed: Yes Appearance: Positive: Well-Appearing, Well-Nourished, Pain Distress Skin: Positive: Warm, Skin Color Reflects Adequate Perfusion, Dry - healed surgical scar over Rt chest; no ecchymosis over ab/flank Head/Face: Positive: Normal Head/Face Inspection Eyes: Positive: Normal, EOMI, Conjunctiva Clear - anicteric sclera ENT: Positive: Normal ENT inspection, Hearing grossly normal, Pharynx normal - mucosa dry Neck: Positive: Supple Respiratory/Lung Sounds: Positive: Clear to Auscultation, Breath Sounds Present. Negative: Rales, Rhonchi, Wheezes Cardiovascular: Positive: Normal, RRR, S1, S2 Abdomen Description: Positive: CVA Tenderness (L), Guarding - somewhat in general but esepcially where's he is TTP in LLQ/side. Negative: CVA Tenderness (R) Bowel Sounds: Positive: Hyperactive Musculoskeletal: Positive: Normal, Strength/ROM Intact Neurological: Positive: Normal, Sensory/Motor Intact, Alert, Oriented to Person Place, Time, CN Intact II-III Psychiatric: Positive: Normal - concerned but cooperative, polite Diagnostics - Vital Signs Vital Signs Temp Pulse Resp BP Pulse Ox 03/07/18 23:45 18 03/07/18 21:56 97.1 F 75 20 178/92 96 - Laboratory Lab Results: Lab Results 03/07/18 03/07/18 03/07/18 Range/Units 23:21 23:21 23:21 WBC 14.3 H (3.5-10.8) 10^3/ul RBC 4.51 (4.00-5.40) 10^6/ul Hgb 14.6 (14.0-18.0) g/dl Hct 43 (42-52) % MCV 95 H (80-94) fL MCH 32 H (27-31) pg MCHC 34 (31-36) g/dl RDW 13 (10.5-15) % Plt Count 173 (150-450) 10^3/ul MPV 8.6 (7.4-10.4) um3 Neut % (Auto) 86.2 H (38-83) % Lymph % (Auto) 8.5 L (25-47) % [place] % (Auto) 4.2 (0-7) % Eos % (Auto) 0.4 (0-6) % Baso % (Auto) 0.7 (0-2) % Absolute Neuts (auto) 12.3 H (1.5-7.7) 10^3/ul Absolute Lymphs (auto) 1.2 (1.0-4.8) 10^3/ul Absolute Monos (auto) 0.6 (0-0.8) 10^3/ul Absolute Eos (auto) 0.1 (0-0.6) 10^3/ul Absolute Basos (auto) 0.1 (0-0.2) 10^3/ul Absolute Nucleated RBC 0 10^3/ul Nucleated RBC % 0 INR (Anticoag Therapy) 1.08 H (0.77-1.02) APTT 26.1 (26.0-36.3) seconds Sodium 138 (135-145) mmol/L Potassium 3.9 (3.5-5.0) mmol/L Chloride 102 (101-111) mmol/L Carbon Dioxide 26 (22-32) mmol/L Anion Gap 10 (2-11) mmol/L BUN 27 H (6-24) mg/dL Creatinine 1.21 H (0.67-1.17) mg/dL Est GFR ( Amer) 72.6 (>60) Est GFR (Non-Af Amer) 60.0 (>60) BUN/Creatinine Ratio 22.3 H (8-20) Glucose 157 H (70-100) mg/dL Lactic Acid (0.5-2.0) mmol/L Calcium 9.7 (8.6-10.3) mg/dL Magnesium 2.0 (1.9-2.7) mg/dL Total Bilirubin 0.70 (0.2-1.0) mg/dL AST 22 (13-39) U/L ALT 18 (7-52) U/L Alkaline Phosphatase 93 (34-104) U/L C-Reactive Protein < 1.00 (<8.01) mg/L Total Protein 8.0 (6.4-8.9) g/dL Albumin 4.5 (3.2-5.2) g/dL Globulin 3.5 (2-4) g/dL Albumin/Globulin Ratio 1.3 (1-3) Lipase 26 (11.0-82.0) U/L Urine Color Urine Appearance Urine pH (5-9) Ur Specific [place] (1.010-1.030) Urine Protein (Negative) Urine Ketones (Negative) Urine Blood (Negative) Urine Nitrate (Negative) Urine Bilirubin (Negative) Urine Urobilinogen (Negative) Ur Leukocyte Esterase (Negative) Urine WBC (Auto) (Absent) Urine RBC (Auto) (Absent) Urine Bacteria (Absent) Urine Glucose (Negative) Urine Ascorbic Acid (Negative) 03/07/18 03/07/18 Range/Units 23:21 23:40 WBC (3.5-10.8) 10^3/ul RBC (4.00-5.40) 10^6/ul Hgb (14.0-18.0) g/dl Hct (42-52) % MCV (80-94) fL MCH (27-31) pg MCHC (31-36) g/dl RDW (10.5-15) % Plt Count (150-450) 10^3/ul MPV (7.4-10.4) um3 Neut % (Auto) (38-83) % Lymph % (Auto) (25-47) % [place] % (Auto) (0-7) % Eos % (Auto) (0-6) % Baso % (Auto) (0-2) % Absolute Neuts (auto) (1.5-7.7) 10^3/ul Absolute Lymphs (auto) (1.0-4.8) 10^3/ul Absolute Monos (auto) (0-0.8) 10^3/ul Absolute Eos (auto) (0-0.6) 10^3/ul Absolute Basos (auto) (0-0.2) 10^3/ul Absolute Nucleated RBC 10^3/ul Nucleated RBC % INR (Anticoag Therapy) (0.77-1.02) APTT (26.0-36.3) seconds Sodium (135-145) mmol/L Potassium (3.5-5.0) mmol/L Chloride (101-111) mmol/L Carbon Dioxide (22-32) mmol/L Anion Gap (2-11) mmol/L BUN (6-24) mg/dL Creatinine (0.67-1.17) mg/dL Est GFR ( Amer) (>60) Est GFR (Non-Af Amer) (>60) BUN/Creatinine Ratio (8-20) Glucose (70-100) mg/dL Lactic Acid 1.3 (0.5-2.0) mmol/L Calcium (8.6-10.3) mg/dL Magnesium (1.9-2.7) mg/dL Total Bilirubin (0.2-1.0) mg/dL AST (13-39) U/L ALT (7-52) U/L Alkaline Phosphatase (34-104) U/L C-Reactive Protein (<8.01) mg/L Total Protein (6.4-8.9) g/dL Albumin (3.2-5.2) g/dL Globulin (2-4) g/dL Albumin/Globulin Ratio (1-3) Lipase (11.0-82.0) U/L Urine Color Yellow Urine Appearance Clear Urine pH 6.0 (5-9) Ur Specific [place] 1.017 (1.010-1.030) Urine Protein Negative (Negative) Urine Ketones Negative (Negative) Urine Blood 2+ A (Negative) Urine Nitrate Negative (Negative) Urine Bilirubin Negative (Negative) Urine Urobilinogen Negative (Negative) Ur Leukocyte Esterase Negative (Negative) Urine WBC (Auto) Trace(0-5/hpf) (Absent) Urine RBC (Auto) 3+(>10/hpf) A (Absent) Urine Bacteria Absent (Absent) Urine Glucose 1+(50 mg/dl) A (Negative) Urine Ascorbic Acid * A (Negative) Result Diagrams: 03/07/18 23:21 03/07/18 23:21 Lab Statement: Any lab studies that have been ordered have been reviewed, and results considered in the medical decision making process. Re-Evaluation - Re-Evaluation First Eval Change: Improved - pain and nausea improved - pt tolerated PO contrast well Abdominal Pain Fem Course/Dx - Course Course Of Treatment: Pt presents w/ 3 day h/o abdominal discomfort which came to head today w/ more focal LLQ and Lt flank pain and nausea + vomiting. He also has sx of urinary urge w/ mininal output. This was initially thought to be a urinary tract stone however w/ ab sx at onset and h/o diverticulosis, a CT scan to assess for stones and diverticulitis was ordered. Pt's WBC are 14 w/ elevated neutrophils and no fever. U/A reveals RBC's and blood. BUN and Creat elevated and above normal for him. Wet read per Dr. Little: CT reveals ~3mm stone in distal ureter w/ hydroureter proximally. His pain and nausea were well controlled with morphine and zofran IV. Pt will be d/c'd home and to f/u urology. He will additionally f/u w/ his PCP re: his "beet colored" stools as he does not appear to have anemia nor inflammatory bowel dz or lesions in his intestines (again, this is on wet read - he semaj receive a call if final read shows otherwise). - Diagnoses Provider Diagnoses: Urinary tract stone - Provider Notifications Discussed Care Of Patient With: Maisha Little Discharge - Sign-Out/Discharge Documenting (check all that apply): Patient Departure - Discharge Plan Condition: Stable Disposition: HOME Prescriptions: HYDROcodone/ACETAMIN 5-325 MG* [Alvo 5-325 TAB*] 1 tab PO Q6H PRN #20 tab MDD 4 PRN Reason: Pain Ondansetron ODT TAB* [Zofran 4 MG Odt TAB*] 8 mg PO Q8H PRN #9 tab.odt PRN Reason: Nausea Tamsulosin CAP* [Flomax CAP*] 0.4 mg PO DAILY #5 cap Patient Education Materials: Kidney Stones (ED), How to Strain Your Urine (ED) Forms: *Work Release Referrals: Tripp Baig MD [Medical Doctor] - Additional Instructions: Strain urine until you pass your stone. Keep stone and bring to urologist for evaluation. Follow-up with Dr. Baig tomorrow - call to schedule an appointment Take medications as directed *If you feel worse, return to ED - Billing Disposition and Condition Condition: STABLE Disposition: Home
[2018-03-08] MEDS ORDERED: oxyCODONE/Acetamin 5/325 MG* TAB PO ONE (03:38)
[2018-03-08] MEDS ORDERED: Tamsulosin CAP* 0.4 MG PO ONE (03:38)
[2018-03-08 04:06] VITALS: BP 139/87
--- NOTE | 2018-03-08 08:07 | RAD ---
Indication: Left flank pain. CT of the abdomen and pelvis was performed without IV contrast administration. Coronal and sagittal reconstructed images were obtained. Lung bases demonstrate no pleural fluid, nodules or masses. Heart is of normal size and configuration. Liver is normal in size. No focal lesions or intrahepatic duct dilatation is noted. The gallbladder demonstrates no calcified gallstones. No pericholecystic fluid wall thickening is noted. The spleen is normal in size. The pancreas demonstrates no mass or pancreatic duct dilatation. The common duct is not dilated. No adrenal lesions are noted. There is left hydronephrosis noted. There is a calculi in the distal left ureter measuring up to 0.4 cm just proximal to the left vesicular junction. The right kidney shows no hydronephrosis. Mild atherosclerotic ectasia of the abdominal aorta is present. No retroperitoneal adenopathy is noted. No dilated loops of bowel are noted. The urinary bladder is unremarkable. No hernias are noted. The colon is filled with stool. The prostate and seminal vesicles demonstrate calcifications in the mildly enlarged prostate gland. The bony structures are grossly unremarkable. IMPRESSION: Left hydronephrosis with perinephric edema and infiltration with a calculi measuring 4 mm just proximal to the left ureterovesicular junction.
== END 2018-03-08 04:04 | disposition home or self-care (01) ==
LOC: ED 21:51
DX: N39.0 Urinary tract infection, site not specified (principal); R10.84 Generalized abdominal pain; Z88.0 Allergy status to penicillin
CPT/HCPCS: 36415; 74176; 80053; 81003; 81015; 83605; 83690; 83735; 85025; 85610; 85730; 86140; 87086; 96374; 96375; 99284; A9270-GY; J2270; J2405